=== PATIENT | female | born 1950 | race Caucasian/White ===

== ENCOUNTER 2018-08-06 08:37 | Outpatient (CLI) | payer MEDICARE, OTHER | END 2018-08-06 23:59 | disposition home or self-care (01) | LOC: RT 08:37 | PROVIDERS: ATTEND Family Medicine | DX: R05 Cough (principal); I11.0 Hypertensive heart disease with heart failure; I50.9 Heart failure, unspecified; Z79.899 Other long term (current) drug therapy; Z95.0 Presence of cardiac pacemaker | CPT/HCPCS: 94010; 94727; 94729 ==